=== PATIENT | female | born 1990 | race Caucasian/White ===

== ENCOUNTER 2017-03-23 17:19 | Emergency (ER) | payer OTHER ==
[~2017-03-23] VITALS: Ht 167.6 cm; Wt 66.7 kg
[2017-03-23] MEDS ORDERED: RHOGAM FROM BLOOD BANK 1 NOTE EA IM/IV ONE (19:00)
[2017-03-23 19:31] VITALS: BP 113/81
[2017-03-23 19:45] VITALS: BP 119/75
[2017-03-23 20:05] VITALS: BP 115/80
== END 2017-03-23 20:35 | disposition home or self-care (01) ==
LOC: ED 20:20
DX: O20.0 Threatened abortion (principal); Z3A.08 8 weeks gestation of pregnancy
CPT/HCPCS: 36415; 76801; 84702; 86850; 86900; 96372; 99285; J2790

== ENCOUNTER 2017-03-24 12:26 | Emergency (ER) | payer OTHER ==
[~2017-03-24] VITALS: Ht 167.6 cm; Wt 66.0 kg
[2017-03-24 14:26] LABS: BLOOD UREA NITROGEN 9 mg/dL (7-18)
[2017-03-24 17:21] VITALS: BP 116/81
== END 2017-03-24 17:28 | disposition home or self-care (01) ==
LOC: ED 15:29
DX: O03.4 Incomplete spontaneous abortion without complication (principal)
CPT/HCPCS: 36415; 76801; 80048; 82040; 84702; 85025; 99285